=== PATIENT | female | born 1955 | race Caucasian/White ===

== ENCOUNTER 2024-03-02 14:33 | Outpatient (CLI) | payer MEDICARE, BC ==
[2024-03-02 20:12] LABS: BASOPHILS % (AUTO) 0.3 %; EOSINOPHILS # (AUTO) 0.2 10^3/uL (0.0-0.7); EOSINOPHILS % (AUTO) 2.4 %; HCT - HEMATOCRIT 44.3 % (37.0-47.0); HGB - HEMOGLOBIN 14.4 g/dL (12.0-16.0); LYMPHOCYTES # (AUTO) 1.9 10^3/uL (1.5-3.5); MEAN CORPUSCULAR HEMOGLOBIN 29.6 pg (27.0-31.0); MEAN CORPUSCULAR HGB CONC 32.5 g/dL (32.0-36.0); MEAN CORPUSCULAR VOLUME 91.2 fL (81.0-99.0); MEAN PLATELET VOLUME 10.5 fL (7.9-10.8); MONOCYTES # (AUTO) 0.5 10^3/uL (0.0-1.0); NEUTROPHILS # (AUTO) 4.8 10^3/uL (1.5-6.6); NEUTROPHILS % (AUTO) 65.2 %; PLT - PLATELET COUNT 257 10^3/uL (130-450); RED BLOOD COUNT 4.86 10^6/uL (4.20-5.40); RED CELL DISTRIBUTION WIDTH 12.9 % (12.0-15.0); WHITE BLOOD COUNT 7.4 x10^3/uL (4.8-10.8)
[2024-03-02 20:53] LABS: ALBUMIN 4.7 g/dL (3.2-5.5); ALBUMIN/GLOBULIN RATIO 1.7 (1.0-2.2); BILIRUBIN,TOTAL 0.5 mg/dL (0.2-1.0); CALCIUM 10.3 mg/dL (8.5-10.3); CREATININE 0.8 mg/dL (0.6-1.3); POTASSIUM 3.7 mmol/L (3.5-4.5); TOTAL PROTEIN 7.5 g/dL (6.4-8.9)
[2024-03-04 10:07] LABS: EBV AB VCA IGM <36.0 U/mL (0.0-35.9); EBV NUCLEAR ANTIGEN AB IGG 53.8 U/mL (0.0-17.9)
== END 2024-03-02 14:34 | disposition home or self-care (01) ==
LOC: LAB.S 14:33
PROVIDERS: ATTEND Registered Nurse
DX: G47.10 Hypersomnia, unspecified (principal); A68.9 Relapsing fever, unspecified; J34.89 Other specified disorders of nose and nasal sinuses; R51.9 Headache, unspecified; R53.81 Other malaise; R53.83 Other fatigue
CPT/HCPCS: 36415; 80053; 81599; 85025; 86618; 86664; 86665; 87040

== ENCOUNTER 2024-03-07 13:55 | Outpatient (CLI) | payer MEDICARE, BC | END 2024-03-07 13:56 | disposition home or self-care (01) | LOC: LAB.S 13:55 | PROVIDERS: ATTEND Registered Nurse | DX: A68.9 Relapsing fever, unspecified (principal); G47.10 Hypersomnia, unspecified; J34.89 Other specified disorders of nose and nasal sinuses; R51.9 Headache, unspecified; R53.81 Other malaise; R53.83 Other fatigue | CPT/HCPCS: 36415 ==